=== PATIENT | male | born 1995 | race Caucasian/White ===

== ENCOUNTER 2020-08-14 09:00 | Emergency (ER) | payer SELFPAY ==
[~2020-08-14] VITALS: Wt 65.8 kg
[2020-08-14] MEDS ORDERED: PENICILLIN-VK500 MG PO (09:42)
== END 2020-08-14 09:44 | disposition home or self-care (01) ==
LOC: ED 09:00
DX: K08.89 Other specified disorders of teeth and supporting structures (principal); J45.909 Unspecified asthma, uncomplicated; F17.200 Nicotine dependence, unspecified, uncomplicated; Z98.890 Other specified postprocedural states

== ENCOUNTER 2023-12-23 02:48 | Emergency (ER) | payer SELFPAY ==
[~2023-12-23] VITALS: Ht 185.4 cm; Wt 75.7 kg
[~2023-12-23 02:48] MED LIST: PENICILLIN-VK500 MG PO
[2023-12-23] MEDS ORDERED: LAMOTRIGINE100 MG PO (02:57)
[2023-12-23] MEDS ORDERED: 'XANAX1 MG PO (02:57)
[2023-12-23] MEDS ORDERED: DULOXETINE HCL30 MG PO (02:57)
[2023-12-23] MEDS ORDERED: Ketorolac Tromethamine 30 MG/ML VIAL IM ONE (03:40)
[2023-12-23] MEDS ORDERED: METHOCARBAMOL 500 MG TAB PO ONE (03:40)
[2023-12-23] MEDS ORDERED: methylPREDNISolone sod succ 125 MG VIAL IM ONE (03:40)
[2023-12-23] MEDS ORDERED: METHOCARBAMOL750 M1 PO (04:26)
[2023-12-23] MEDS ORDERED: NAPROSYN500 MG PO (04:26)
[2023-12-23] MEDS ORDERED: PREDNISONE50 MG PO (04:26)
== END 2023-12-23 04:30 | disposition home or self-care (01) ==
LOC: ED 02:48
DX: M62.830 Muscle spasm of back (principal); J45.909 Unspecified asthma, uncomplicated; Z90.89 Acquired absence of other organs; Z98.890 Other specified postprocedural states; Z87.891 Personal history of nicotine dependence

== ENCOUNTER 2025-03-23 05:19 | Emergency (ER) | payer SELFPAY ==
[~2025-03-23] VITALS: Ht 182.8 cm; Wt 63.5 kg
[~2025-03-23 05:19] MED LIST changes: +'XANAX1 MG PO; +DULOXETINE HCL30 MG PO; +LAMOTRIGINE100 MG PO; +METHOCARBAMOL750 M1 PO; +NAPROSYN500 MG PO; +PREDNISONE50 MG PO
[2025-03-23] MEDS ORDERED: XANAX1 MG PO (05:29)
[2025-03-23 06:00] LABS: BILIRUBIN Negative (Negative); BLOOD Negative (Negative); CLARITY Turbid (Clear); COLOR Yellow (Yellow); KETONE Negative (Negative); LEUKO ESTERASE Trace (Negative); NITRITE Negative (Negative); PH 7.5 (4.5-8.0); SPECIFIC GRAVITY 1.025 (1.001-1.030); UROBILINOGEN 1.0 E.U./dl (0.0-1.0)
[2025-03-23 06:07] LABS: URINE AMPHETAMINES Positive (1000ng/ml); URINE BARBITURATES Negative (200ng/ml); URINE BENZODIAZEPINES Negative (200ng/ml); URINE CANNABINOIDS (THC) Positive (50ng/ml); URINE COCAINE Negative (300ng/ml); URINE METHADONE Negative (300ng/ml); URINE OPIATES Negative (300ng/ml); URINE PHENCYCLIDINE Negative (25ng/ml)
[2025-03-23 06:11] LABS: BASO # 0.1 10*3/uL (0.0-0.1); BASO % 0.8 % (0.0-1.0); EOS # 0.3 10*3/uL (0.0-0.4); EOS % 3.6 % (1.0-4.0); MEAN CELL VOLUME 86.2 fl (80.0-94.0); MEAN CORPUSCULAR HGB 29.2 pg (27.0-31.0); MEAN PLATELET VOLUME 9.4 fl (9.6-12.3); MONO # 0.5 10*3/uL (0.1-1.0); MONO % 7.3 % (3.0-9.0); NEUT # 4.2 10*3/uL (2.3-7.9); NEUT % 58.0 % (47.0-73.0); NUCLEATED RED BLOOD CELL 0.0 % (0.0-0.0); NUCLEATED RED BLOOD CELL 0.0 10*3/uL (0.0-0.0); PLATELET COUNT AUTOMATED 256 10*3/uL (130-400); RED CELL DISTRI WIDTH 12.7 % (0-14.5)
[2025-03-23 06:27] LABS: BACTERIA 3+
[2025-03-23 07:02] LABS: BUN 20 mg/dl (9-23)
[2025-03-23 07:13] LABS: ETHYL ALCOHOL < 3.0 mg/dl (<3)
== END 2025-03-23 07:13 | disposition home or self-care (01) ==
LOC: ED 05:19
PROVIDERS: Internal Medicine
DX: F41.9 Anxiety disorder, unspecified (principal); J45.909 Unspecified asthma, uncomplicated; Z91.148 Patient's other noncompliance with medication regimen for other reason; Z79.899 Other long term (current) drug therapy